=== PATIENT | female | born 2000 | race Caucasian/White ===

== ENCOUNTER 2022-02-24 19:46 | Emergency (ER) | payer OTHER, SELFPAY ==
[2022-02-24 21:04] VITALS: BP 150/88; PULSE 102; RESP 18; TEMP 36.8; O2SAT 99; BMI 25.2
--- NOTE | 2022-02-24 21:48 | ED_ITS ---
HPI - General Adult General Chief complaint: General Medical Stated complaint: Bat exposure Time Seen by Provider: 02/24/22 21:48 Source: patient and RN notes reviewed Mode of arrival: ambulatory Limitations: no limitations History of Present Illness HPI narrative: 29-year-old female presents to the ER seeking rabies vaccination. She reports she slept in her room were a bat was flying around on January 10. There was no known bite. The bat was able to be lead out of her room the next day. She went to [facility] and received her 1st rabies vaccination and rabies immunoglobulin. Her family discourage her from getting further rabies vaccinations due to pentecostalism concerns. She has been anxious since not completing the series. She has 2 fair it is at home in her bedroom and 1 of them is old and starting to get ill. She reports it is not acting normally. She is going to bring into the bat for further evaluation but is concerned may have rabies. She would like to complete her rabies series and get another rabies shot today. She is otherwise feeling well aside from anxiety. MD complaint: Anxiety, requesting rabies vaccination Onset (ago): week(s) Associated symptoms: denies other symptoms Treatments prior to arrival: none Related Data Allergies Allergy/AdvReac Type Severity Reaction Status Date / Time No Known Allergies Allergy Verified 02/24/22 21:04 Review of Systems Review of Systems: Constitutional: No Fever, No Chills Cardiovascular: No Chest Pain, No SOB Respiratory: No Cough, No Sputum Gastrointestinal: No Nausea, No Vomiting, No Diarrhea, No abdominal Pain Musculoskeletal: No joint pain, No Myalgias Skin: No Skin Lesions, No rash Neuro: No Weakness, No Numbness, No Dizziness, No Headache Psych: +Anxiety/Panic, No Depression Heme/Lymph: No Bruising, No Lymphadenopathy PMFSH Social History Social History Advance Directives: No Advance Directives Information Provided: No Physical Exam ED Vital Signs: Vital Signs - 24 hr 02/24/22 21:04 Temperature 98.2 F Pulse Rate 102 H Respiratory Rate 18 Blood Pressure 150/88 H Pulse Oximetry 99 Oxygen Delivery Method Room Air BMI result Body Mass Index 25.2 Appearance: Alert. Oriented X3. No acute distress. HEENT: Normal external inspection Neck: Normal inspection. Neck supple. CVS: Normal heart rate and rhythm. Pulses normal. Respiratory: No respiratory distress. Speaks in complete sentences Skin: Skin warm and dry. Normal skin color. Normal skin turgor. No rashes. Extremities: No lower extremity edema. Neuro: Oriented X 3. Grossly normal, nonfocal Course Course Course Narrative: 21-year-old female presenting to the ER for rabies vaccination. She received 1st dose and immunoglobulin at [facility] on January 10. She needs 3 more doses of the vaccination. Will give 2nd dose today and have her follow-up in short-stay surgery for the completion of the series. Case discussed with . Patient has been counseled and is stable for discharge home. Critical Care Time Critical Care Time Critical Care Time: No Discharge Plan Discharge Clinical Impression: Exposure to bat without known bite Patient Disposition: Home, Self-Care Instructions: Rabies Vaccine (By injection) Additional Instructions: You were given the 2nd dose of your Rabies vaccination today. You will need 2 more doses. Follow the schedule on the card provided.
[2022-02-24] MEDS: Rabies Vaccine (PCEC)/PF 1 ML VIAL IM (23:27)
== END 2022-02-24 23:36 | disposition home or self-care (01) ==
PROVIDERS: Emergency Provider Internal Medicine; PCP Pediatrics Adolescent Medicine
DX: Z20.3 Contact with and (suspected) exposure to rabies (principal); F41.9 Anxiety disorder, unspecified
CPT/HCPCS: 90471; 90675; 99282; 99284

== ENCOUNTER 2022-02-28 09:56 | Outpatient (REF) | payer OTHER, SELFPAY | END 2022-02-28 09:57 | disposition home or self-care (01) | LOC: HO.MDS 09:56 | PROVIDERS: Visit Provider Physician Assistant | DX: Z29.14 Encounter for prophylactic rabies immune globulin (principal); T14.90XD Injury, unspecified, subsequent encounter; W53.81XD Bitten by other rodent, subsequent encounter; Z20.3 Contact with and (suspected) exposure to rabies | CPT/HCPCS: 90471; 90675 ==

== ENCOUNTER 2022-03-07 09:56 | Outpatient (REF) | payer OTHER, SELFPAY | END 2022-03-07 09:57 | disposition home or self-care (01) | LOC: HO.MDS 09:56 | PROVIDERS: PCP Pediatrics Adolescent Medicine; Visit Provider Physician Assistant | DX: Z29.14 Encounter for prophylactic rabies immune globulin (principal); F41.9 Anxiety disorder, unspecified; Z20.3 Contact with and (suspected) exposure to rabies | CPT/HCPCS: 90471; 90675 ==

== ENCOUNTER 2025-06-20 00:13 | Emergency (ER) | payer SELFPAY ==
--- NOTE | ~2025-06-20 | XR_ITS ---
CLINICAL HISTORY: Chest Pain 2 view chest x-ray Comparison: None provided Findings: No consolidation or effusion. Normal size heart. No acute fracture. IMPRESSION: 1. No acute findings. This document has been electronically signed by: Silviano Gray MD on 06/20/2025 05:20:00
--- NOTE | 2025-06-20 00:15 | ECG_ITS ---
Test Reason : CP Blood Pressure : */* mmHG Vent. Rate : 105 BPM Atrial Rate : 105 BPM P-R Int : 116 ms QRS Dur : 82 ms QT Int : 324 ms P-R-T Axes : 32 35 31 degrees QTcB Int : 428 ms Sinus tachycardia Otherwise normal ECG No previous ECGs available Referred By: Generic ED Physician Electronically Signed By: ARACELI HERNANDEZ
[2025-06-20 00:24] VITALS: BP 156/88; PULSE 107; RESP 20; TEMP 36.7; O2SAT 99; BMI 36.4
[2025-06-20 01:05] LABS: MANUAL DIFF FLAG NO
[2025-06-20 01:09] LABS: Hematocrit 36.7 % (37.0-47.0); Hemoglobin 13.1 g/dl (12.0-16.0); Imm Gran Abs Auto 0.02 X10*3/uL (0.00-0.03); Imm Gran Pct Auto 0.2 % (0.0-0.4); Lymphocytes Absolute Auto 2.5 X10*3/uL (1.2-4.9); Mean Corpuscular HGB Conc 35.7 g/dl (31.0-35.0); Mean Corpuscular Hemoglobin 29.8 pg (27.0-33.0); Mean Corpuscular Volume 83.4 fL (80.0-98.0); NRBC Abs Auto 0.000 X10*3/uL (0.0-0.012); NRBC Pct Auto 0.0 /100WBC (0.0-0.2); Platelet Count 297 X10*3/uL (160-400); Red Blood Count 4.40 X10*6/uL (4.20-5.50); White Blood Count 8.2 X10*3/uL (4.8-10.8)
[2025-06-20 01:29] LABS: Anion Gap 14 (12-20); Blood Urea Nitrogen 10 mg/dL (9-16); Calcium 10.3 mg/dL (8.4-10.2); Carbon Dioxide 23 mmol/L (22-29); Chloride 108 mmol/L (96-108); Creatinine Clr Calc Pharmacy 93.2; Estimated Glomerular Filt Rate > 60; Potassium 4.0 mmol/L (3.3-5.1); Sodium 141 mmol/L (135-145)
[2025-06-20 01:43] LABS: Troponin-I High Sensitivity < 2.7 ng/L (<3.5-17.0)
--- NOTE | 2025-06-20 02:16 | ED_ITS ---
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 Symptoms began very mild with the associated nausea without vomiting earlier today, however the pain became severe enough to seek care at approximately 10:30 PM. She attempted to sleep off the symptoms but the discomfort persisted. The arm pain waxes and wanes, begins in the upper arm with a sensation of intense squeezing pain radiating distally, with associated constant jaw pain described as pressure, which increases concurrently with the arm pain. The patient reports associated intermittent chills with tremor and generalized malaise. Denies chest pain, syncope, palpitations, shortness of breath, cough, sore throat, abdominal pain, vomiting, diarrhea, or dysuria. Last bowel movement was yesterday; no blood noted. Last menstrual period was ?a couple weeks ago,? typical flow and duration. Related Data Allergies Allergy/AdvReac Type Severity Reaction Status Date / Time No Known Allergies Allergy Verified 06/20/25 00:26 Review of Systems 2 Review of Systems: Yes all other systems are reviewed and are negative PMFSH Social History Social History Alcohol intake: never Smoked in Last 30 Days: No Use of substances other than those prescribed or required for medical reasons: No Advance Directives: No Physical Exam 2 Vital Signs: Vital Signs: Last Vital Signs Temp 98.7 F 06/20/25 04:51 Pulse 88 06/20/25 04:51 Resp 20 06/20/25 04:51 BP 137/74 06/20/25 04:51 Pulse Ox 100 06/20/25 04:51 O2 Del Method Room Air 06/20/25 04:51 BMI result Body Mass Index 36.4 CONSTITUTIONAL: The patient appears non-toxic, well nourished and in no acute distress. Vital signs as documented. HEAD: Atraumatic, normocephalic. EYES: EOMs grossly intact, pupils equal, conjunctiva clear, no exudate. ENT: Nares patent, no discharge. Airway patent, no audible stridor, visible mucosa is pink and moist without noted lesions. NECK: Trachea is midline, no obvious masses or gross abnormalities. CHEST: Symmetric movement, normal appearance. LUNGS: LS present and CTAB, no w/r/r. Non-labored work of breathing. CARDIAC: Regular Rhythm, S1/S2 appreciated, no murmurs, rubs or gallops. ABDOMEN: Abdomen soft and non-tender x4 quadrants, no palpable masses or organomegaly. : Deferred. EXTREMITIES: Left upper extremity demonstrates no acute injury or deformity, full nonpainful range of motion, distal CSM intact, 2+ radial pulse, normal Raoul's test, men's swim coach strength 5/5. Normal tone, moves all extremities spontaneously without reported pain. No obvious acute injury or deformity noted. NEURO: Alert and oriented x3, CN II-XII appear grossly intact. Cerebellar Functioning grossly intact. No obvious sensory or motor deficits. Speech clear and appropriate. PSYCH: normal affect, appropriate eye contact, fluid speech, with appropriate response to questioning. No reported suicidality or homicidality. SKIN: Warm, dry, color appropriate, normal turgor. No rashes noted. 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 Symptoms began very mild with the associated nausea without vomiting earlier today, however the pain became severe enough to seek care at approximately 10:30 PM. She attempted to sleep off the symptoms but the discomfort persisted. The arm pain waxes and wanes, begins in the upper arm with a sensation of intense squeezing pain radiating distally, with associated constant jaw pain described as pressure, which increases concurrently with the arm pain. The patient reports associated intermittent chills with tremor and generalized malaise. Denies chest pain, syncope, palpitations, shortness of breath, cough, sore throat, abdominal pain, vomiting, diarrhea, or dysuria. Last bowel movement was yesterday; no blood noted. Last menstrual period was ?a couple weeks ago,? typical flow and duration. On exam the patient is well- appearing, in no acute distress. Unremarkable exam. The patient's laboratory evaluation shows no leukocytosis, anemia, electrolyte abnormality, or EUNICE. The patient's troponin is negative. The patient's EKG shows sinus rhythm but with tachycardia, tachycardia persist during this provider's interview. We will obtain a chest x-ray, and add on repeat troponin, as well as D-dimer as we are unable to rule out PE due to tachycardia. 4:31 AM 06/20/2025 (Miguel CLARK): The patient's repeat troponin is negative, D-dimer is negative. The patient's chest x-ray is still pending. The patient's pain will be treated with anti-inflammatories. Pending unremarkable chest x-ray the patient will be discharged with supportive care. 5:21 AM 06/20/2025 (Miguel CLARK): The patient is requesting discharge, declining Tylenol or ibuprofen. The patient's x-ray is still pending, however upon this provider's interpretation there is no focal consolidation or acute cardiopulmonary process. The patient will be discharged per her request to follow up with PCP. Admission/Observation Consideration of admission/observation: Escalation of care including admission/observation considered Lab Data MDM Lab Attestation statement: I reviewed the patient's lab results. 06/20/25 00:57 06/20/25 00:57 Labs: Lab Results 06/20/25 06/20/25 Range/Units 00:57 03:34 WBC 8.2 (4.8-10.8) X10*3/uL RBC 4.40 (4.20-5.50) X10*6/uL Hgb 13.1 (12.0-16.0) g/dl Hct 36.7 L (37.0-47.0) % MCV 83.4 (80.0-98.0) fL MCH 29.8 (27.0-33.0) pg MCHC 35.7 H (31.0-35.0) g/dl RDW 11.6 (11.0-16.0) % Plt Count 297 (160-400) X10*3/uL MPV 10.5 (9.4-12.3) fL Immature Gran % (Auto) 0.2 (0.0-0.4) % Neut % (Auto) 58.6 (45-73) % Lymph % (Auto) 30.8 (20-40) % [place] % (Auto) 7.3 (2-11) % Eos % (Auto) 2.6 (0-4) % Baso % (Auto) 0.5 (0-2) % Lymph # (Auto) 2.5 (1.2-4.9) X10*3/uL [place] # (Auto) 0.6 (0.1-1.2) X10*3/uL Eos # (Auto) 0.2 (0.0-0.4) X10*3/uL Baso # (Auto) 0.0 (0.0-0.2) X10*3/uL Abs Immat Gran (auto) 0.02 (0.00-0.03) X10*3/uL Absolute Neuts (auto) 4.8 (2.0-8.3) x10*3/uL Absolute Nucleated RBC 0.000 (0.0-0.012) X10*3/uL Nucleated RBC % (auto) 0.0 (0.0-0.2) /100WBC D-Dimer High Sensitivty < 150 NG/ML Sodium 141 (135-145) mmol/L Potassium 4.0 (3.3-5.1) mmol/L Chloride 108 (96-108) mmol/L Carbon Dioxide 23 (22-29) mmol/L Anion Gap 14 (12-20) BUN 10 (9-16) mg/dL Creatinine 0.86 (0.5-1.4) mg/dL Estim Creat Clear Calc 93.2 Estimated GFR > 60 Random Glucose 95 (60-115) mg/dL Calcium 10.3 H (8.4-10.2) mg/dL Troponin I High Sens < 2.7 < 2.7 (<3.5-17.0) ng/L Independent Interpretation I performed an independent interpretation of an: EKG (EKG shows sinus tachycardia with a rate of 105, no evidence of acute ischemia, no ST elevation, no ectopy. QTC 428, no old for comparison.) and Plain X-Ray Interpretation: This provider's interpretation of chest x-ray shows no focal consolidation, no other acute cardiopulmonary process identified. Radiology Impression Discussion of test interpretation with radiology: I have reviewed the radiologist's reading. Radiologist Impression: 2 view chest x-ray Comparison: None provided Findings: No consolidation or effusion. Normal size heart. No acute fracture. IMPRESSION: 1. No acute findings. This document has been electronically signed by: Silviano Gray MD on 06/20/2025 05:20:00 External Record Review External record reviewed: Outpatient record Discharge Plan Discharge Clinical Impression: Atypical chest pain Left shoulder pain Qualifiers: Chronicity: acute Qualified Code(s): M25.512 - Pain in left shoulder Patient Disposition: Home, Self-Care Instructions: Noncardiac Chest Pain (ED) Additional Instructions: Thank you for choosing [facility]'s Emergency Department for your care today. Thankfully your EKG, chest x-ray, laboratory evaluation, and exam today are all reassuring. At this time there is no indication for admission to the hospital or continued ED observation, and it is safe to discharge you home. The exact cause of your symptoms is not entirely clear, however there is currently no evidence of a heart attack, blood clot, systemic infection, pneumonia, electrolyte abnormality, or kidney dysfunction contributing to your symptoms. You should take alternating (staggered) doses of ibuprofen 600mg and Tylenol 1000mg every 4 hours as needed for any additional pain. Please stay well hydrated and get plenty of rest. Please rest the injured area, and apply ice for 20 minutes every hour. Please follow up with your primary care physician for re-evaluation, additional management of your symptoms, and continued preventative care. If you do not have a primary care physician, please call the [facility] at [phone] to establish a new primary care physician. While waiting to establish your new primary care physician, you can call our Walk[facility]in [facility] at [phone] for non-emergency needs. Please return to the emergency department if you develop a severe or sudden change in your symptoms, a fever over 100.4 that does not improve with Tylenol or Ibuprofen, recurrent vomiting, or any other new or worsening symptoms or concerns. Print Language: Frisian
[2025-06-20 04:04] LABS: Troponin-I High Sensitivity < 2.7 ng/L (<3.5-17.0)
[2025-06-20 04:09] LABS: D Dimer High Sensitivity < 150 NG/ML
[2025-06-20 04:49] VITALS: BP 137/74; PULSE 91; RESP 15; O2SAT 99
[2025-06-20 04:51] VITALS: BP 137/74; PULSE 88; RESP 20; TEMP 37.1; O2SAT 100
--- OUTSIDE RECORDS SUMMARY | 2025-06-20 05:33 | XMS_ITS | Encounter Summary ---
Author Organization [facility] Address [address] [place] [address] Phone Care Team Providers Care Subgrade Roller Operator Name Role Phone Swathi Grossman MD Primary Care Provider [phone] Reason for Visit * Reason Comments Med Refill Encounter Details Date Type Department Care Team (Late st Contact Info) Description 03/01/2019 Refill [facility] - [place] [address] [place] [phone] Swathi Grossman MD [address] [place] [address] Oral contraceptive prescribed Social History Tobacco Use Types Packs/Day Years Used Date Smoking Tobacco: Never Smokeless Tobacco: Never Comments:Never Smoker Comments No Sex and Gender Information Value Date Recorded Sex Assigned at Not on file Legal Sex Female 6:16 PM EDT Gender Identity Female 01/20/2022 5:59 PM EDT Sexual Orientation Not on file documented as of this encounter Miscellaneous Notes * Telephone Encounter - Caitlin Gann RN - 03/15/2019 5:06 PM EDT Rx for 1 mo supply of OCP sent to pharmacy * Telephone Encounter - Yeni Worthington - 03/15/2019 10:13 AM EDT Scheduled francesca for 04/05/19 with RG in [facility], pt asked if we could send over the rx. * Telephone Encounter - Caitlin Gann RN - 03/13/2019 10:31 AM EDT Spoke with pt re OCP refill. Informed pt she is past due for wcc and in order for any further refills to be provided, next wcc must be scheduled and appt kept. Offered to schedule pts next wcc, pt declined as she states she is signing up for college classes tomorrow and will have her schedule tomorrow. Pt states she has a few days worth of OCP's left. Advised pt to callback tomorrow once she has her college schedule to schedule next wcc and for ocp rx to be sent to pharmacy. Pt verbalized understanding and agrees with plan. * Telephone Encounter - Caitlin Gann RN - 03/05/2019 8:42 AM EDT Attempted to call pt's cell number [phone], received message that stated there is no vm set-upand was unable to leave vm. Will attempt again * Telephone Encounter - Yeni Worthington - 03/05/2019 8:28 AM EDT Message on script Line Flor requesting her refill for her OCP Almost out and rx is supposed to refill automatically so she would like to know why. # on line was [phone] she would like a call back. PT of [facility] Sending to blue team * Telephone Encounter - Pooja Farris LPN - 03/01/2019 11:04 AM EDT E-request for refill ocp from [facility]. Last WCC 02/10/18 with [facility] and past due for annual physical, no appointment pending. Phone call to home, but no answer and no vm cherry picker operator. Cell was no answer and no vm is set up. documented in this encounter Plan of Treatment Not on file documented as of this encounter Visit Diagnoses Diagnosis Oral contraceptive prescribed documented in this encounter Care Teams Subgrade Roller Operator Relationship Specialty Start Date End Date Swathi Grossman MD [address] [place] [id number] PCP - General 12/07/17 06/08/22 documented as of this encounter
--- OUTSIDE RECORDS SUMMARY | 2025-06-20 05:33 | XMS_ITS | Encounter Summary ---
Author Organization [facility] Address [address] [place] [address] Phone Care Team Providers Care Client Leader Name Role Phone Swathi Grossman MD Primary Care Provider [phone] Reason for Visit * Reason Comments Med Refill Encounter Details Date Type Department Care Team (Late st Contact Info) Description 02/27/2018 Refill [facility] - [place] [address] [place] [address] Swathi Grossman MD [address] [place] [address] Oral contraceptive prescribed Social History Tobacco Use Types Packs/Day Years Used Date Smoking Tobacco: Never Smokeless Tobacco: Never Comments:Never Smoker Comments No Sex and Gender Information Value Date Recorded Sex Assigned at Not on file Legal Sex Female 6:16 PM EDT Gender Identity Female 01/20/2022 5:59 PM EDT Sexual Orientation Not on file documented as of this encounter Plan of Treatment Not on file documented as of this encounter Visit Diagnoses Diagnosis Oral contraceptive prescribed documented in this encounter Care Teams Client Leader Relationship Specialty Start Date End Date Swathi Grossman MD [address] [place] [address] PCP - General 12/07/17 06/08/22 documented as of this encounter
--- OUTSIDE RECORDS SUMMARY | 2025-06-20 05:33 | XMS_ITS | Clinical Summary ---
Author Organization [facility] Address [address] [place] [address] Phone Care Team Providers Care Learning And Development Intern Name Role Phone Unavailable Primary Care Provider Unavailabl e Allergies No known active allergies Medications Multiple Vitamin (MULTIVITAMIN) capsule Take 1 capsule by mouth daily. Active norgestimate-ethi nyl estradiol (CGO-HZ-WYSLSL) 0.18/0.215/0.25 MG-25 MCG per tabletIndications :Oral contraceptive prescribed Take 1 tablet by mouth once daily. 28 tablet 9 Active Additional Information Patient not taking.Reported on 11/30/2021 Active Problems Problem Noted Date Diagnosed Date Acute pharyngitis 12/11/2021 Assessment & Plan (12/11/2021 2:24 PM EDT): WBC, neutrophils are elevated suggesting bacterial process, however negative for strep, NO evidence of EXHAUST MACHINE OPERATOR, POSSIBLE peritonsillar cellulitis, but this may be a stretch at the moment. ?vesicles - ?herpangina/viral, but labs do not reflect this. EBV pending at this time. PLAN: Repeat labs today to see the trend of the WBC, neutrophils. Rx clindamycin. Will NOT take clinda YET, but will have on hand to start if labs are worse or throat is feeling worse. Patient requesting tonsillectomy. Refer to ENT. 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 Acute bronchospasm 07/26/2017 Overview (04/04/2019): Acute bronchospasm (519.11) Onset: 07/26/2017 Added by: Lluvia Ellington Immunizations Immunization Administration Dates Next Due DTaP 5 10/21/2005, 2,03/28/2001, 001,01/01/2001 HPV, Quadrivalent 01/16/2013,12/20/2012 Hep A / Hep B 01/24/2001 Hep B, ped/adol 06/29/2001,2000,2000 Hib (HbOC) 12/22/2001, 1,01/24/2001, 001 IPV 10/21/2005, 1,01/18/2001, 001 MMR 12/21/2004,09/27/2001 Meningococcal Conj (Menactra) MCV4P 12/01/2011 PPD Test 01/31/2019 Pneumococcal Conjugate 03/28/2001,02/02/2001,09/2000 Tdap 12/20/2012,12/01/2011 Varicella 11/26/2009,09/27/2001 Social History Tobacco Use Types Packs/Day Years Used Date Smoking Tobacco: Never Smokeless Tobacco: Never Comments:Never Smoker Comments No Sex and Gender Information Value Date Recorded Sex Assigned at Not on file Legal Sex Female 6:16 PM EDT Gender Identity Female 01/20/2022 5:59 PM EDT Sexual Orientation Not on file Last Filed Vital Signs Vital Sign Reading Time Taken Comments Blood Pressure 114/62 12/11/2021 1:37 PM EDT Pulse 125 12/11/2021 1:37 PM EDT Temperature 37.6 C (99.6 F) 12/11/2021 1:37 PM EDT Respiratory Rate 19 12/11/2021 1:37 PM EDT Oxygen Saturation 99% 12/11/2021 1:37 PM EDT Inhaled Oxygen Concentration - - Weight 56.3 kg (124 lb 1.9 oz) 12/11/2021 1:37 P M EDT Height 151 cm (4' 11.45 ) 12/11/2021 1:37 PM EDT Body Mass Index 24.69 12/11/2021 1:37 PM EDT Plan of Treatment Health Maintenance Due Date Last Done Comments HPV Vaccines (3 - 2-dose series) 06/22/2013 01/16/2013, 12/20/2012 DTaP,Tdap,and Td Vaccines (8 - Td or Tdap) 12/20/2022 12/20/2012, 12/01/2011, 10/21/2005, Additional history exists Influenza Vaccines (#1) 2025 COVID-19 Vaccine (2024- season) 2025 Hepatitis A Vaccines Aged Out 01/24/2001 No long er eligible based on patient's age to complete this topic Pneumococcal Vaccine Aged Out 03/28/2001, 02/02/2001, 2000 No longer eligible based on patient's age to complete this topic Hepatitis B Vaccines Completed 06/29/2001, 01/24/2001, 2000, Additional history exists HIB Vaccines Completed 12/22/2001, 03/02, 01/24/2001, Additional history exists MMR Vaccines Completed 12/21/2004, 0509/2004, 09/27/2001 IPV Vaccines Completed 10/21/2005, 06/02, 01/18/2001, Additional history exists Varicella Vaccines Completed 11/26/2009, 09/27/2001 Meningococcal Vaccine Aged Out 12/01/2011 No gissel sarah eligible based on patient's age to complete this topic Men B Vaccine Aged Out No longer elig ible based on patient's age to complete this topic
--- OUTSIDE RECORDS SUMMARY | 2025-06-20 05:33 | XMS_ITS | Encounter Summary ---
Author Organization [facility] Address [address] [place] [phone] Phone Care Team Providers Care Predatory Hunter Name Role Phone Swathi Grossman MD Primary Care Provider [phone] Encounter Details Date Type Department Care Team (Late st Contact Info) Description 02/23/2017 Conversion Encounter [facility] - [place] [address] [place] [address] [place] [address] Social History Tobacco Use Types Packs/Day Years Used Date Smoking Tobacco: Never Comments:Never Smoker Comments Unknown Sex and Gender Information Value Date Recorded Sex Assigned at Not on file Legal Sex Female 6:16 PM EDT Gender Identity Female 01/20/2022 5:59 PM EDT Sexual Orientation Not on file documented as of this encounter Plan of Treatment Not on file documented as of this encounter Visit Diagnoses Not on filedocumented in this encounter Care Teams Predatory Hunter Relationship Specialty Start Date End Date Swathi Grossman MD [address] [place] [address] PCP - General 12/07/17 06/08/22 documented as of this encounter
--- OUTSIDE RECORDS SUMMARY | 2025-06-20 05:33 | XMS_ITS | Encounter Summary ---
Author Organization [facility] Address [address] [place] [id number] Phone Care Team Providers Care Disassembler Product Name Role Phone Swathi Grossman MD Primary Care Provider [phone] Reason for Visit * Reason Comments Med Refill Encounter Details Date Type Department Care Team (Late st Contact Info) Description 01/05/2018 Refill [facility] [place] [address] [place] [address] Swathi Grossman MD [address] [place] [address] Oral contraceptive prescribed (Primary Dx) Social History Tobacco Use Types Packs/Day Years [...] this encounter Visit Diagnoses Diagnosis Oral contraceptive prescribed- Primary documented in this encounter Care Teams Disassembler Product Relationship Specialty Start Date End Date Swathi Grossman MD [address] [place] [address] PCP - General 12/07/17 06/08/22 documented as of this encounter
[2025-06-20 06:09] VITALS: BP 137/74; PULSE 88; RESP 20; TEMP 37.1; O2SAT 100
== END 2025-06-20 06:15 | disposition home or self-care (01) ==
PROVIDERS: Emergency Medicine; Physician Assistant; Emergency Provider Emergency Medicine
DX: M25.512 Pain in left shoulder (principal); R07.89 Other chest pain; R68.84 Jaw pain; M79.603 Pain in arm, unspecified; Q79.60 Ehlers-Danlos syndrome, unspecified; R11.0 Nausea
CPT/HCPCS: 36415; 71046; 80048; 84484; 85025; 85379; 93005; 99284; 99285

== ENCOUNTER → 2025-06-20 00:15 | Outpatient (BNV) | payer SELFPAY | PROVIDERS: Emergency Provider Emergency Medicine; Visit Provider Internal Medicine | DX: R00.0 Tachycardia, unspecified (principal) | CPT/HCPCS: 93010 ==

== ENCOUNTER → 2025-06-20 02:17 | Outpatient (BNV) | payer SELFPAY | PROVIDERS: Emergency Provider Emergency Medicine; Visit Provider Student in an Organized Health Care Education/Training Program | DX: R07.9 Chest pain, unspecified (principal) | CPT/HCPCS: 71046 ==